=== PATIENT | male | born 1975 | race Hispanic/Latino ===

== ENCOUNTER 2018-06-03 11:20 | Emergency (ER) | payer OTHER ==
--- NOTE | 2018-06-03 12:12 | RAD REPORT ---
EXAM DESCRIPTION: CT - Head Brain Wo Cont - 06/03/2018 12:04 pm CLINICAL HISTORY: MENTAL STATUS CHANGE Drowsiness COMPARISON: No comparisons TECHNIQUE: All CT scans are performed using dose optimization technique as appropriate and may inclu de automated exposure control or mA/KV adjustment according to patient size. FINDINGS: No intracranial hemorrhage, hydrocephalus or extra-axial fluid collection.Large area of gl iosis is seen in the left cerebral hemisphere likely related to prior infarction or trauma.Prominent brain atrophy pattern with chronic microvascular ischemic changes seen. No midline shift. The paranasal sinuses and mastoids are clear. The calvarium is intact. IMPRESSION: No acute intracranial abnormality. Prominent atrophy pattern noted, greater than typically seen in this age group.
[2018-06-03 12:54] LABS: Protime INR 1.13
[2018-06-03 12:55] LABS: Absolute Lymphocytes (CBC) 1.2 K/uL (0.7-4.9); Absolute Monocytes 0.5 K/uL (0.1-1.3); Absolute Neutrophil 6.1 K/uL (1.8-8.0); Basophils % 0.2 % (0-1.3); Eosinophils % 1.2 % (0-4.4); Hematocrit 36.2 % (39.6-49.0); Lymphocytes % 14.8 % (15.3-44.8); MCH 29.7 pg (27.0-35.0); MCV 84.6 fL (80-100); MPV 8.3 fL (7.6-11.3); Monocytes % 6.4 % (3.3-12.3); RBC Red Blood Cell Count 4.28 M/uL (4.33-5.43)
[2018-06-03 13:05] LABS: ALT/SGPT 24 U/L (12-78); AST/SGOT 15 U/L (15-37); Albumin 3.3 g/dL (3.4-5.0); Alkaline Phosphatase 105 U/L (45-117); BUN Blood Urea Nitrogen 17 mg/dL (7-18); Bicarbonate 26 mmol/L (21-32); Bilirubin Direct < 0.1 mg/dL (0-0.2); Bilirubin Total 0.2 mg/dL (0.2-1.0); Glucose Level 158 mg/dL (74-106); Potassium 3.8 mmol/L (3.5-5.1); Protein, Total 6.9 g/dL (6.4-8.2); Sodium Level 139 mmol/L (136-145)
[2018-06-03 13:41] LABS: Urine Bacteria NONE SEEN /HPF (NONE SEEN); Urine Culture Reflex Order NOT NEEDED; Urine RBC <5 /HPF (NONE SEEN)
[2018-06-03 13:42] LABS: Urine Blood 1+ (NEG); Urine Glucose NEGATIVE (NEG); Urine Protein TRACE (NEG); Urine Specific Gravity 1.025 (1.005-1.030); Urine pH 5.5 (5.0-7.0)
[2018-06-03 13:51] LABS: Barbiturates NEGATIVE (NEGATIVE); Benzodiazepines NEGATIVE (NEGATIVE); Cocaine NEGATIVE (NEGATIVE); METHAMPHETAM NEGATIVE (NEGATIVE); Methadone NEGATIVE (NEGATIVE); Opiates NEGATIVE (NEGATIVE); Phencyclidine NEGATIVE (NEGATIVE); THC Cannibis NEGATIVE (NEGATIVE)
--- NOTE | 2018-06-03 14:21 | EDPHYS ---
Physician Documentation [facility] Name: Jameson Forde Age: 42 yrs Sex: Male : 1975 Arrival Date: 06/03/2018 Time: 11:28 Bed 27 Private MD: ED Physician Luis E Cantu HPI: 06/03 14:00 This 42 yrs old Male presents to ER via EMS with complaints of General pm1 Weakness. 14:00 The patient presents to the emergency department with weakness of the entire body, pm1 generalized weakness. Onset: The symptoms/episode began/occurred this morning. Context: occurred at home, occurred while the patient was doing normal activity. Associated signs and symptoms: Pertinent negatives: fever, headache, syncope, near-syncope. Severity of symptoms: in the emergency department the symptoms. Patient's baseline: Neuro: orientated to person, place, Motor: at his current generalized weakness baseline, Ambulation: walks without assistance, The patient has a previous history of mitochondrial disease. Current symptoms: Currently, the patient is not experiencing any symptoms, the patient feels back to baseline, according to sister who lives with. The patient has not recently seen a physician. 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 Patient was not doing his normal routine according to his sister and is currently acting within his normal limits. 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 - Social history:: Smoking status: Patient/guardian denies using tobacco. - Ebola Screening: : Patient negative for fever greater than or equal to 101.5 degrees Fahrenheit, and additional compatible Ebola Virus Disease symptoms Patient denies exposure to infectious person Patient denies travel to an Ebola-affected area in the 21 days before illness onset No symptoms or risks identified at this time. ROS: 14:00 Constitutional: Negative for fever, chills, and weight loss, Eyes: Negative for injury, pm1 pain, redness, and discharge, ENT: Negative for injury, pain, and discharge, Neck: Negative for injury, pain, and swelling, Cardiovascular: Negative for chest pain, palpitations, and edema, Respiratory: Negative for shortness of breath, cough, wheezing, and pleuritic chest pain, Abdomen/GI: Negative for abdominal pain, nausea, vomiting, diarrhea, and constipation, Back: Negative for injury and pain, : Negative for injury, bleeding, discharge, and swelling, MS/Extremity: Negative for injury and deformity, Skin: Negative for injury, rash, and discoloration. 14:00 Neuro: Positive for generalized weakness, Negative for altered mental status, headache, loss of consciousness, seizure activity, syncope, near syncope. Exam: 14:00 Constitutional: This is a well developed, well nourished patient who is awake, alert, pm1 and in no acute distress. Head/Face: Normocephalic, atraumatic. Eyes: Pupils equal round and reactive to light, extra-ocular motions intact. Lids and lashes normal. Conjunctiva and sclera are non-icteric and not injected. Cornea within normal limits. Periorbital areas with no swelling, redness, or edema. ENT: Nares patent. No nasal discharge, no septal abnormalities noted. Tympanic membranes are normal and external auditory canals are clear. Oropharynx with no redness, swelling, or masses, exudates, or evidence of obstruction, uvula midline. Mucous membranes moist. Neck: Trachea midline, no thyromegaly or masses palpated, and no cervical lymphadenopathy. Supple, full range of motion without nuchal rigidity, or vertebral point tenderness. No Meningismus. Chest/axilla: Normal chest wall appearance and motion. Nontender with no deformity. No lesions are appreciated. Cardiovascular: Regular rate and rhythm with a normal S1 and S2. No gallops, murmurs, or rubs. Normal PMI, no JVD. No pulse deficits. Respiratory: Lungs have equal breath sounds bilaterally, clear to auscultation and percussion. No rales, rhonchi or wheezes noted. No increased work of breathing, no retractions or nasal flaring. Abdomen/GI: Soft, non-tender, with normal bowel sounds. No distension or tympany. No guarding or rebound. No evidence of tenderness throughout. Back: No spinal tenderness. No costovertebral tenderness. Full range of motion. Skin: Warm, dry with normal turgor. Normal color with no rashes, no lesions, and no evidence of cellulitis. MS/ Extremity: Pulses equal, no cyanosis. Neurovascular intact. Full, normal range of motion. 14:00 Neuro: Orientation: unable to test, mitochondrial disease, Mentation: baseline according to sister at bedside, Motor: moves all fours, strength is 5/5 in all extremities, Sensation: is normal, no obvious gross deficits. Vital Signs: 11:39 BP 108 / 72; Pulse 83; Resp 24; Temp 99(O); Pulse Ox 100% on 2 lpm NC; Weight 65.77 kg dm5 (R); Height 5 ft. 6 in. (167.64 cm) (R); Pain 0/10; 11:43 Pulse Ox 94% on R/A; dm5 13:12 BP 105 / 75; Pulse 77; Resp 16; Pulse Ox 99% on R/A; aj 13:41 BP 109 / 73; Pulse 73; Resp 16; Pulse Ox 99% on R/A; aj 14:35 BP 108 / 73; Pulse 76; Resp 18; Pulse Ox 99% on R/A; aj 11:39 Body Mass Index 23.40 (65.77 kg, 167.64 cm) dm5 MDM: 11:28 Patient medically screened. yahir 14:20 Data reviewed: vital signs. Data interpreted: Pulse oximetry: on room air is 99 %. pm1 Interpretation: normal. Counseling: I had a detailed discussion with the patient and/or guardian regarding: the historical points, exam findings, and any diagnostic results supporting the discharge/admit diagnosis, lab results, radiology results, the need for outpatient follow up, to return to the emergency department if symptoms worsen or persist or if there are any questions or concerns that arise at home. 06/03 11:39 Order name: Acetaminophen; Complete Time: 14: pm1 06/03 11:39 Order name: Basic Metabolic Panel; Complete Time: 14: pm06/03 11:39 Order name: CBC with Diff; Complete Time: 14: pm1 06/03 11:39 Order name: ETOH Level; Complete Time: 14: pm1 06/03 11:39 Order name: Hepatic Function; Complete Time: 14: pm06/03 11:39 Order name: PT-INR; Complete Time: 14:09 pm1 06/03 11:35 Order name: CT Head Brain wo Cont; Complete Time: 12:22 pm1 06/03 11:39 Order name: Ptt, Activated; Complete Time: 14:09 pm06/03 11:39 Order name: Salicylate; Complete Time: 14:09 pm1 06/03 11:39 Order name: Urine Drug Screen; Complete Time: 14:09 pm06/03 11:39 Order name: EKG; Complete Time: 11:40 pm1 06/03 11:39 Order name: EKG - Nurse/Tech; Complete Time: 13:26 pm1 06/03 11:39 Order name: Urine Microscopic Only; Complete Time: 14:09 pm06/03 13:21 Order name: Urine Dipstick--Ancillary (enter results); Complete Time: 14:09 eb 06/03 11:39 Order name: IV Saline Lock; Complete Time: 13:19 pm1 06/03 11:39 Order name: Labs collected and sent; Complete Time: 13:19 pm1 06/03 11:39 Order name: Urine Dipstick-Ancillary (obtain specimen); Complete Time: 13:19 pm1 Administered Medications: No medications were administered Disposition: 06/04 07:18 Co-signature as Attending Physician, Luis E Cantu MD I agree with the assessment and yahir plan of care. Disposition: 06/03/18 14:21 Discharged to Home. Impression: Weakness. - Condition is Stable. - Discharge Instructions: Weakness. - Medication Reconciliation Form, Thank You Letter, Antibiotic Education, Prescription Opioid Use form. - Follow up: Emergency Department; When: As needed; Reason: Worsening of condition. Follow up: Private Physician; When: 2 - 3 days; Reason: Recheck today's complaints, Continuance of care, Re-evaluation by your physician. - Problem is new. - Symptoms have improved. Signatures: Dispatcher [employer] Swati Hidalgo, Elida Reyna RN, RN RN aj Anderson, Corey, MD MD cha Marinas, Patrick, DISPENSARY CLERK DISPENSARY CLERK pm1 Corrections: (The following items were deleted from the chart) 06/03 14:37 14:21 06/03/2018 14:21 Discharged to Home. Impression: Weakness. Condition is Stable. aj Forms are Medication Reconciliation Form, Thank You Letter, Antibiotic Education, Prescription Opioid Use. Follow up: Emergency Department; When: As needed; Reason: Worsening of condition. Follow up: Private Physician; When: 2 - 3 days; Reason: Recheck today's complaints, Continuance of care, Re-evaluation by your physician. Problem is new. Symptoms have improved. pm1
--- NOTE | 2018-06-03 14:21 | ER ---
Nurse's Notes [facility] Name: Jameson Forde Age: 42 yrs Sex: Male : 1975 Arrival Date: 06/03/2018 Time: 11:28 Bed 27 Private MD: Diagnosis: Weakness Presentation: 06/03 11:32 Presenting complaint: EMS states: Home health says he just wasn't himself earlier but dm5 he is more back to baseline at this time. Always weak and has a hard time walking normally. Family wants blood work done and states he needs fluids. Pt finishing liter bolus started in EMS. Transition of care: patient was not received from another setting of care. Onset of symptoms was June 03, 2018. Risk Assessment: Do you want to hurt yourself or someone else? Patient reports no desire to harm self or others. Initial Sepsis Screen: Does the patient meet any 2 criteria? No. Patient's initial sepsis screen is negative. Does the patient have a suspected source of infection? No. Patient's initial sepsis screen is negative. Care prior to arrival: IV initiated. 18 GA, in the left forearm. 11:32 Method Of Arrival: EMS: [facility] 5 11:32 Acuity: SHEN 3 dm5 Triage Assessment: 11:39 General: Appears in no apparent distress. Behavior is calm, cooperative, baseline per dm5 family. Pain: Denies pain. Unable to use pain scale. only answers yes questions but does not appear to be in pain at this time. Neuro: Level of Consciousness is awake, obeys commands, confused. Respiratory: Airway is patent Respiratory effort is even, unlabored, relaxed, Respiratory pattern is regular, symmetrical. GI: family reports diarrhea yesterday. Pt vomited throw up last night 1 time. Derm: Skin is pink, warm \T\ dry. 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 - Social history:: Smoking status: Patient/guardian denies using tobacco. - Ebola Screening: : Patient negative for fever greater than or equal to 101.5 degrees Fahrenheit, and additional compatible Ebola Virus Disease symptoms Patient denies exposure to infectious person Patient denies travel to an Ebola-affected area in the 21 days before illness onset No symptoms or risks identified at this time. Screenin:34 Abuse screen: Denies threats or abuse. Denies injuries from another. Nutritional aj screening: No deficits noted. Tuberculosis screening: No symptoms or risk factors identified. Fall Risk None identified. Assessment: 12:33 General: Appears in no apparent distress. comfortable, Behavior is calm, cooperative, aj appropriate for age. Pain: Denies pain. Neuro: Level of Consciousness is awake, obeys commands, Oriented to WNL for patient. Neuro: Embossing Calender Operator are equal bilaterally Moves all extremities. Speech is normal, Facial symmetry appears normal. Respiratory: Airway is patent Respiratory effort is even, unlabored, Respiratory pattern is regular, symmetrical. GI: No signs and/or symptoms were reported involving the gastrointestinal system. Derm: Skin is intact, is healthy with good turgor, Skin is pink, warm \T\ dry. normal. 14:35 Reassessment: Patient appears in no apparent distress at this time. No changes from aj previously documented assessment. Patient and/or family updated on plan of care and expected duration. Pain level reassessed. Patient is alert, oriented x 3, equal unlabored respirations, skin warm/dry/pink. Caregiver is at bedside Patient states feeling better. Patient states symptoms have improved. Vital Signs: 11:39 BP 108 / 72; Pulse 83; Resp 24; Temp 99(O); Pulse Ox 100% on 2 lpm NC; Weight 65.77 kg dm5 (R); Height 5 ft. 6 in. (167.64 cm) (R); Pain 0/10; 11:43 Pulse Ox 94% on R/A; dm5 13:12 BP 105 / 75; Pulse 77; Resp 16; Pulse Ox 99% on R/A; aj 13:41 BP 109 / 73; Pulse 73; Resp 16; Pulse Ox 99% on R/A; aj 14:35 BP 108 / 73; Pulse 76; Resp 18; Pulse Ox 99% on R/A; aj 11:39 Body Mass Index 23.40 (65.77 kg, 167.64 cm) dm5 ED Course: 11:28 Patient arrived in ED. ss 11:28 Corky Steel NP is PHCP. pm1 11:28 Luis E Cantu MD is Attending Physician. pm1 11:34 Triage completed. dm5 11:43 Arm band placed on Patient placed in an exam room, on a stretcher, on manager cardiac, dm5 on pulse oximetry. 12:[address] via stretcher. sj 12:05 CT Head Brain wo Cont In Process Unspecified. EDMS 12:33 Elida Aldrich, RN is Primary Nurse. aj 12:34 Patient has correct armband on for positive identification. Placed in gown. Bed in low aj position. Call light in reach. Side rails up X 1. Adult w/ patient. 12:52 EKG done, by pathology technician. reviewed by Corky Steel NP. 3 14:35 No provider procedures requiring assistance completed. IV discontinued, intact, aj bleeding controlled, No redness/swelling at site. Pressure dressing applied, EMS 18 G to left AC. Administered Medications: No medications were administered Outcome: 14:21 Discharge ordered by . pm1 14:35 Discharged to home ambulatory, with family. aj 14:35 Condition: good 14:35 Discharge instructions given to patient, family, Instructed on discharge instructions, follow up and referral plans. Demonstrated understanding of instructions, follow-up care. 14:37 Patient left the ED. aj Signatures: Dispatcher [employer] CHERNM Swati Long RN RN dmElida Aquino RN RN aj Jones, Susan sj Smirch, Shelby, RN RN Corky Steel NP NEWS WIRE PHOTO OPERATOR pm1 Juju Tony 3
--- NOTE | 2018-06-04 04:18 | EKG ---
Test Date: 2018-06-03 Test Time: 12:50:32 Bulk Folder: SADI MEASUREMENT RESULTS: Intervals: Rate: 77 NV: 120 QRSD: 84 QT: 402 QTc: 454 [place]: P: 49 NV: 120 QRS: 47 T: 152 INTERPRETIVE STATEMENTS: Normal sinus rhythm nst Abnormal ECG Compared to ECG 10/16/2007 20:00:45 Sinus tachycardia no longer present T-wave abnormality still present Electronically Signed On 06-04-18 04:17:27 CDT by Gregory Martinez
== END 2018-06-03 14:37 | disposition home or self-care (01) ==
LOC: ER 11:20
DX: R53.1 Weakness (principal); E88.40 Mitochondrial metabolism disorder, unspecified
CPT/HCPCS: 36415; 70450; 80048; 80076; 80307; 80320; 80329; 81003; 81015; 85025; 85610; 85730; 93005; 99284

== ENCOUNTER 2022-03-21 13:40 | Inpatient (IN) | payer OTHER ==
--- OUTSIDE RECORDS SUMMARY | 2022-03-21 13:43 | XMS REPORT | Continuity of Care Document ---
:1975 Author Organization [facility] t Address [address] [place] [address] [address] [place] [address] Care Team Providers Name Role Phone Unavailable Unavailable Unavailable Payers Payer Name Policy Type Policy Number Effective Date Expiration Date S rusty MEDICARE PART A \T\ [id number] 2008 B 00:00:00 [facility] [id number] 2019 MEDICAID 00:00:00 Problems This patient has no known problems. Allergies, Adverse Reactions, Alerts Allergy Allergy Status Severity Reaction(s) Onset Inactive Treating Comm ents Source Name Type Date Date Clinician IODINATE Drug Active Rash 2009-0 [facility] D Class 3-11 ity of CONTRAST 00:00: [address] PHENYTOI DRUG Active Hives 2006-0 Univers N INGREDI 5-13 ity of 00:00: [address] Medications This patient has no known medications. Procedures This patient has no known procedures. Encounters Start End Encounter Admission Attending Care Care Encounter Source Date/Time Date/Time Type Type Clinicians Facility Department ID 2021-07-31 Emergency [facility] [id number] [facility] 15:56:24 ity of [facility] Results This patient has no known results.
--- NOTE | 2022-03-21 14:19 | RAD REPORT ---
EXAM DESCRIPTION: CT - Ct Stroke Brain Wo Cont - 03/21/2022 2:06 pm CLINICAL HISTORY: MELAS, AMS COMPARISON: Head Brain Wo Cont dated 06/03/2018 TECHNIQUE: All CT scans are performed using dose optimization technique as appropriate and may inclu de automated exposure control or mA/KV adjustment according to patient size. FINDINGS: No intracranial hemorrhage, hydrocephalus or extra-axial fluid collection.No areas of brai n edema or evidence of midline shift. Large remote left MCA territory infarct. Age advanced cerebral atrophy. Chronic small vessel ischemic changes. Bilateral basal ganglia mineralization. Trace maxillary sinus thickening. The calvarium is intact. IMPRESSION: No acute intracranial abnormality. Large remote left MCA territory infarct.
[2022-03-21 14:26] LABS: Absolute Lymphocytes (CBC) 1.6 K/uL (0.7-4.9); Hematocrit 37.4 % (39.6-49.0); Lymphocytes % 16.7 % (15.3-44.8); MPV 7.3 fL (7.6-11.3); RBC Red Blood Cell Count 4.39 M/uL (4.33-5.43)
[2022-03-21 14:32] LABS: Protime INR 1.12
--- NOTE | 2022-03-21 14:40 | RAD REPORT ---
EXAM DESCRIPTION: RAD - Chest Single View - 03/21/2022 2:20 pm CLINICAL HISTORY: AMS COMPARISON: CHEST SINGLE VIEW dated 04/26/2010 FINDINGS: Lines: None. Lungs: Decreased lung volumes with mild basilar opacities. Pleural: No significant pleural effusions or pneumothorax. Cardiac: Similar size and configuration. Bones: No acute fractures. Other: IMPRESSION: Decreased lung volumes with mild basilar opacities favored represent atelectasis.
[2022-03-21 14:45] LABS: ALT/SGPT 19 U/L (12-78); AST/SGOT 12 U/L (15-37); Albumin 3.6 g/dL (3.4-5.0); Alkaline Phosphatase 104 U/L (45-117); BUN Blood Urea Nitrogen 16 mg/dL (7-18); Bicarbonate 29 mmol/L (21-32); Bilirubin Total 0.2 mg/dL (0.2-1.0); Creatine Phosphokinase 137 U/L (39-308); Glomerular Filtration Rate 115 ml/min (=/>90); Glucose Level 116 mg/dL (74-106); Potassium 4.2 mmol/L (3.5-5.1); Protein, Total 7.7 g/dL (6.4-8.2); Sodium Level 137 mmol/L (136-145)
[2022-03-21] MEDS ORDERED: NA CHLORIDE 0.9% 1,000 ML ONE ×2 (14:53→15:24)
[2022-03-21 14:58] LABS: Bilirubin Direct < 0.1 mg/dL (0-0.2)
--- NOTE | 2022-03-21 15:37 | EDPHYS ---
Physician Documentation [facility] Name: Jameson Forde Age: 46 yrs Sex: Male : 1975 Arrival Date: 03/21/2022 Time: 13:42 Bed 3 Private MD: ED Physician Geraldo Alexander HPI: 03/21 18:43 This 46 yrs old Male presents to ER via EMS with complaints of Altered Mental rn Status, Slurred Speech. 18:43 The patient presents with confusion. Onset: The symptoms/episode began/occurred at an rn unknown time. Possible causes: unknown. Current symptoms: In the emergency department the patient's symptoms are unchanged from the initial presentation. The patient has experienced a previous episode. The patient has not recently seen a physician. EMS reports last known normal last night, family saw him this AM and was not at baseline, seemed confused, more slurred speech than normal, agitated. NO seizures. Has MELAS. Takes carbamazepine for seizures. . 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 - Social history:: Smoking status: unknown. - Family history:: not pertinent. - Hospitalizations: : No recent hospitalization is reported. ROS: 18:43 Unable to obtain ROS due to altered mental status. rn Exam: 18:43 Constitutional: This is a well developed, well nourished patient who is awake, alert, rn slight agitation Head/Face: Normocephalic, atraumatic. Eyes: Periorbital areas with no swelling, redness, or edema. ENT: dry MM Cardiovascular: Regular rate and rhythm. No pulse deficits. Respiratory: No increased work of breathing, no retractions or nasal flaring. Abdomen/GI: Soft, non-tender Skin: Warm, dry MS/ Extremity: Pulses equal, no cyanosis. Neuro: Awake alert, moderate slurred speech, moves all 4 extremities with equal strength and to command. Oriented to person, not place or time, repetetive speech. Vital Signs: 13:42 BP 124 / 83; Pulse 74; Resp 16; Temp 98.4(A); Pulse Ox 100% ; aa5 15:00 BP 123 / 78; Pulse 74; Resp 18 S; Temp 98.3(A); Pulse Ox 100% on R/A; aa5 16:30 BP 119 / 85; Pulse 74; Resp 16 S; Pulse Ox 99% on R/A; aa5 19:16 BP 119 / 96; Pulse 73; Resp 18 S; Pulse Ox 100% on R/A; lg3 NIH Stroke Scale Scores: 13:42 NIHSS Score: 9 aa5 MDM: 13:42 Patient medically screened. rn 03/21 13:44 Order name: Basic Metabolic Panel; Complete Time: 15:32 rn 03/21 13:44 Order name: CBC with Diff; Complete Time: 14:30 rn 03/21 13:44 Order name: CPK; Complete Time: 15:32 rn 03/21 13:44 Order name: Hepatic Function; Complete Time: 15:32 rn 03/21 13:44 Order name: Protime (+inr); Complete Time: 14:49 03/21 13:44 Order name: Ptt, Activated; Complete Time: 14:49 rn 03/21 13:44 Order name: Lactate; Complete Time: 15:32 rn 03/21 14:29 Order name: Glucose, Ancillary Testing; Complete Time: 14:30 [facility] 03/21 14:55 Order name: SARS-COV-2 RT PCR (Document "Date of Onset" if Symptomatic) 03/21 15:35 Order name: Urine Drug Screen 03/21 16:51 Order name: Prolactin EDKY 03/21 16:51 Order name: Creatine Phosphokinase EDKY 03/21 16:51 Order name: Homocysteine EDKY 03/21 16:51 Order name: Thyroid Stimulating Hormone EDKY 03/21 13:44 Order name: CT Stroke Brain w/o Contrast; Complete Time: 14:30 rn 03/21 13:44 Order name: Stroke CXR 1 View; Complete Time: 14:49 rn 03/21 16:51 Order name: CBC with Automated Diff EDMS 03/21 16:51 Order name: CBC with Automated Diff EDMS 03/21 16:51 Order name: Comprehensive Metabolic Panel EDMS 03/21 16:51 Order name: Comprehensive Metabolic Panel EDMS 03/21 16:51 Order name: Comprehensive Metabolic Panel EDKY 03/21 16:51 Order name: Comprehensive Metabolic Panel EDMS 03/21 16:51 Order name: Lipid Profile EDKY 03/21 16:51 Order name: Lipid Profile EDKY 03/21 16:51 Order name: Brain Wo Cont EDKY 03/21 16:53 Order name: Carbamazepine (Tegretol) Level EDKY 03/21 19:02 Order name: Urine Dipstick-Ancillary EDKY 03/21 19:43 Order name: Lactate Sepsis 2 HR Follow-up EDKY 03/21 13:44 Order name: EKG; Complete Time: 13:44 rn 03/21 13:44 Order name: Accucheck; Complete Time: 14:30 rn 03/21 13:44 Order name: Cardiac monitoring; Complete Time: 14:30 rn 03/21 13:44 Order name: EKG - Nurse/Tech; Complete Time: 14:30 rn 03/21 13:44 Order name: IV Saline Lock; Complete Time: 14:30 rn 03/21 13:44 Order name: Labs collected and sent; Complete Time: 14:30 rn 03/21 13:44 Order name: NPO; Complete Time: 13:47 rn 03/21 13:44 Order name: O2 Per Protocol; Complete Time: 13:46 rn 03/21 13:44 Order name: O2 Sat Monitoring; Complete Time: 13:46 rn 03/21 13:44 Order name: Stroke Swallow Screen; Complete Time: 15:01 rn 03/21 16:51 Order name: CONS Physician Consult EDKY 03/21 16:51 Order name: Clear Liquid; Complete Time: 19:16 EDMS Administered Medications: 14:45 Drug: NS 0.9% 1000 ml Route: IV; Rate: 1000 ml; Site: right antecubital; aa5 15:31 Drug: NS 0.9% 1000 ml Route: IV; Rate: 1000 ml; Site: right antecubital; aa5 Point of Care Testing: Blood Glucose: 14:20 Blood Glucose: 123 mg/dL; aa5 Ranges: Critical Glucose Levels:Adult <50 mg/dl or >400 mg/dl <40 mg/dl or >180 mg/dl Disposition Summary: 03/21/22 15:36 Hospitalization Ordered Hospitalization Status: Inpatient Admission rn Provider: Marielos De Los Santos rn Location: Telemetry/MedSurg (Inpatient) rn Condition: Stable rn Problem: new rn Symptoms: are unchanged rn Bed/Room Type: Standard rn Room Assignment: 223(03/21/22 18:19) bd Diagnosis - Altered mental status, unspecified magdi GANNON rn Forms: - Medication Reconciliation Form rn - SBAR form rn NIH Stroke Scale - NIH Stroke Score Date: 03/21/2022 Time: 13:42 Total Score = 9 1a. Level of Consciousness (LOC) - 0(Alert) 1b. Level of Consciousness (LOC) (Month \\T\\ Age) - 2(Neither) 1c. LOC Commands (Open \\T\\ Closes Eyes/Tank Car Cleaner) - 2(Neither) 2. Best Gaze (Lateral Gaze Paresis) - 0(Normal) 3. Visual Field Loss - 0(No visual loss) 4. Facial Palsy - 0(Normal) 5a. Left Arm: Motor (10-second hold) - 0(No drift) 5b. Right Arm: Motor (10-second hold) - 1(Drift) 6a. Left Leg: Motor (5-second hold - always test supine) - 0(No drift) 6b. Right Leg: Motor (5-second hold - always test supine) - 0(No drift) 7. Limb Ataxia (finger/nose \\T\\ heel/henning - test with eyes open) - 0(Absent) 8. Sensory Loss (pinprick arms/legs/face) - 0(Normal) 9. Best Language: Aphasia (description/naming/reading) - 2(Severe aphasia) 10. Dysarthria (speech clarity - read or repeat words) - 2(Severe) 11. Extinction and Inattention (visual/tactile/auditory/spatial/personal) - 0(No abnormality) Initials: aa5 Signatures: Dispatcher [employer] Jeanne Metzger Roman, MD MD rn Calderon, Audri, RN RN aa5 Corrections: (The following items were deleted from the chart) 13:54 13:42 PMHx: DYLON; blas aa5 18:19 15:36 rn eva
--- NOTE | 2022-03-21 15:37 | ER ---
Nurse's Notes [facility] Name: Jameson Forde Age: 46 yrs Sex: Male : 1975 Arrival Date: 03/21/2022 Time: 13:42 Bed 3 Private MD: Diagnosis: Altered mental status, unspecified;MELAS Presentation: 03/21 13:42 Coronavirus screen: At this time, the client does not indicate any symptoms associated aa5 with coronavirus-19. Ebola Screen: Patient denies travel to an Ebola-affected area in the 21 days before illness onset. Initial Sepsis Screen: Does the patient meet any 2 criteria? No. Patient's initial sepsis screen is negative. Does the patient have a suspected source of infection? No. Patient's initial sepsis screen is negative. Risk Assessment: Do you want to hurt yourself or someone else? Unable to obtain. Onset of symptoms was March 21, 2022. 13:42 Acuity: SHEN 2 aa5 13:42 Method Of Arrival: EMS: [facility] aa5 13:42 Chief complaint: EMS states: family reported speech difficulty, pt is normally able to aa5 speak short sentences with some aphasia. Last known normal was last night. 13:42 An acute neurological deficit is present. Pre-hospital glucose is not applicable to aa5 this patient. Triage Assessment: 13:42 The onset of the patients symptoms was more than six hours ago. 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 - Social history:: Smoking status: unknown. - Family history:: not pertinent. - Hospitalizations: : No recent hospitalization is reported. Screenin:36 Abuse screen: No signs of abuse noted. Nutritional screening: No deficits noted. aa5 Tuberculosis screening: No symptoms or risk factors identified. Fall Risk Secondary diagnosis (15 points) CVA, IV access (20 points). Mental Status- Overestimates/Forgets Limitations (15 pts.). Total Waggoner Fall Scale indicates High Risk Score (45 or more points). Fall prevention measures have been instituted. Side Rails Up X 2 Placed Close to Nursing Station Family Present and informed to notify staff if the need to leave the bedside. Assessment: 13:42 General: Appears comfortable, Behavior is calm, cooperative. Pain: Unable to use pain aa5 scale. FLACC scale score is 0 out of 10. Neuro: Level of Consciousness is awake, confused, Pt only able to follow some commands . Oriented to person, Diesel Mechanic Farm are unknown, pt unable to follow command to transition teacher. . Weakness in right arm(s) Speech is slurred, with expressive aphasia noted, Facial symmetry appears normal, PERRL. Cardiovascular: Heart tones S1 S2 present Rhythm is regular. Respiratory: Airway is patent Respiratory effort is even, unlabored, Respiratory pattern is regular, symmetrical, Breath sounds are clear bilaterally. GI: Abdomen is round non-distended, Bowel sounds present X 4 quads. Abd is soft X 4 quads. : No signs and/or symptoms were reported regarding the genitourinary system. EENT: hearing aid noted to left ear . Derm: Skin is dry, Skin is normal, Skin temperature is warm. Musculoskeletal: Range of motion: intact in all extremities. 13:42 VAN Scoring: Arm Drift: Minor drift Visual Disturbance: No visual disturbance noted. aa5 Aphasia: Patient exhibits both expressive and receptive aphasia. Provider notified of +VAN scoring. Neglect: No neglect noted. 13:42 T-PA (Activase) Screening: Contraindications: Patient reports onset of signs and aa5 symptoms of stroke greater than 6 hours ago: Yes. 13:42 Patient has been NPO before screening. The patient is alert, and able to follow aa5 commands. The patient exhibits slurred or garbled speech. Provider notified of the indication for Speech Therapy consult. The patient failed the bedside swallow screening. The patient will be kept NPO until cleared by Speech Therapy or Physician. Provider notified of bedside swallow screening results: Geraldo Alexander MD. 13:42 The patient is exhibiting difficulty speaking. The patient is exhibiting difficulty aa5 understanding words. The patient is able to swallow own secretions with no drooling or need for suction. not completed not completed. 14:00 Reassessment: Pt's niece (swage toolsetter) at bedside. Pt's niece reports slurred speech and aa5 states "he was dropping things this morning and he normally doesn't do that, he is right handed and dropped his coffee cup this morning" . 14:10 Reassessment: Back from CT, x-ray at bedside . aa5 14:45 Reassessment: Pt not responding to name, pt with eyes open staring into space, right aa5 side of face twitching and mild facial droop noted, MD was notified and episode witnessed by physician, currently speaking to pt's niece (caregiver). Episode lasted approximately 30 to 45 seconds. Pt now awake and responding to name, slurred speech, receptive/expressive aphasia noted, right arm weakness and drift, no facial droop noted at this time. . 15:00 Reassessment: Pt sitting up in bed. . Neuro: Level of Consciousness is awake, Oriented aa5 to person, Diesel Mechanic Farm are unknown, pt not following commands to transition teacher . Weakness in right arm(s) Speech is slurred, with expressive aphasia noted, Facial symmetry appears normal, PERRL. Cardiovascular: Rhythm is sinus rhythm. Respiratory: Airway is patent Respiratory effort is even, unlabored, Respiratory pattern is regular, symmetrical. Derm: Skin is dry, Skin is normal, Skin temperature is warm. 15:30 Reassessment: Pt resting in bed with eyes closed, respirations even and unlabored. . aa5 16:30 Reassessment: Pt resting in bed with eyes closed, easy to awaken to verbal stimuli. aa5 Speech remains incomprehensible and slurred. Awaiting room assignment. . 17:30 Reassessment: Pt resting in bed with eyes closed, easy to awaken to verbal stimuli. aa5 Cleaned of urinary incontinence. . 19:17 General: Appears in no apparent distress. comfortable, Behavior is calm, cooperative. lg3 Pain: Unable to use pain scale. FLACC scale score is 0 out of 10. Neuro: Level of Consciousness is awake, confused, Oriented to person, Weakness Speech is slurred, with expressive aphasia noted, Facial symmetry appears normal. Cardiovascular: No deficits noted. Heart tones S1 S2 present Rhythm is sinus rhythm. Respiratory: No deficits noted. Airway is patent Respiratory effort is even, unlabored, Respiratory pattern is regular, symmetrical. GI: No deficits noted. Abdomen is round non-distended, Bowel sounds present X 4 quads. Abd is soft X 4 quads. : No signs and/or symptoms were reported regarding the genitourinary system. EENT: hearing aid noted to left ear. Derm: No deficits noted. Skin is dry, Skin is normal, Skin temperature is warm. Musculoskeletal: Range of motion: intact in all extremities. 20:15 Reassessment: Pt taken to MRI via stretcher, will go to 2nd floor after MRI is complete.vc1 Vital Signs: 13:42 BP 124 / 83; Pulse 74; Resp 16; Temp 98.4(A); Pulse Ox 100% ; aa5 15:00 BP 123 / 78; Pulse 74; Resp 18 S; Temp 98.3(A); Pulse Ox 100% on R/A; aa5 16:30 BP 119 / 85; Pulse 74; Resp 16 S; Pulse Ox 99% on R/A; aa5 19:16 BP 119 / 96; Pulse 73; Resp 18 S; Pulse Ox 100% on R/A; lg3 NIH Stroke Scale Scores: 13:42 NIHSS Score: 9 aa5 ED Course: 13:42 Patient arrived in ED. rn 13:42 Geraldo Alexander MD is Attending Physician. rn 13:42 Arm band placed on. aa5 13:42 Patient has correct armband on for positive identification. Placed in gown. Bed in low aa5 position. Call light in reach. Side rails up X2. Client placed on continuous cardiac and pulse oximetry monitoring. NIBP monitoring applied. 13:46 Jany Bettencourt, MICHELLE is Primary Nurse. aa5 13:48 Triage completed. aa5 14:07 CT Stroke Brain w/o Contrast In Process Unspecified. EDMS 14:15 Initial lab(s) drawn, by me, sent to lab. Inserted saline lock: 20 gauge in right aa5 antecubital area, using aseptic technique. Blood collected. 14:22 Stroke CXR 1 View In Process Unspecified. EDMS 15:35 Marielos De Los Santos MD is Hospitalizing Provider. rn 15:45 COVID swab sent to lab. aa5 19:00 Report given to MICHELLE Mei. aa5 19:16 Carbamazepine (Tegretol) Level Sent. lg3 19:16 Lipid Profile Sent. lg3 20:13 No provider procedures requiring assistance completed. Patient admitted, IV remains in vc1 place. Administered Medications: 14:45 Drug: NS 0.9% 1000 ml Route: IV; Rate: 1000 ml; Site: right antecubital; aa5 15:31 Drug: NS 0.9% 1000 ml Route: IV; Rate: 1000 ml; Site: right antecubital; aa5 Medication: 19:17 VIS not applicable for this client. lg3 Point of Care Testing: Blood Glucose: 14:20 Blood Glucose: 123 mg/dL; aa5 Ranges: Outcome: 15:36 Decision to Hospitalize by Provider. rn 20:14 Admitted to Med/surg via stretcher, room 223, Report called to Francisco. MICHELLE vc1 20:14 Condition: good 20:14 Instructed on the need for admit. 20:15 Patient left the ED. vc1 NIH Stroke Scale - NIH Stroke Score Date: 03/21/2022 Time: 13:42 Total Score = 9 1a. Level of Consciousness (LOC) - 0(Alert) 1b. Level of Consciousness (LOC) (Month \\T\\ Age) - 2(Neither) 1c. LOC Commands (Open \\T\\ Closes Eyes/Type Casting Machine Operator) - 2(Neither) 2. Best Gaze (Lateral Gaze Paresis) - 0(Normal) 3. Visual Field Loss - 0(No visual loss) 4. Facial Palsy - 0(Normal) 5a. Left Arm: Motor (10-second hold) - 0(No drift) 5b. Right Arm: Motor (10-second hold) - 1(Drift) 6a. Left Leg: Motor (5-second hold - always test supine) - 0(No drift) 6b. Right Leg: Motor (5-second hold - always test supine) - 0(No drift) 7. Limb Ataxia (finger/nose \\T\\ heel/henning - test with eyes open) - 0(Absent) 8. Sensory Loss (pinprick arms/legs/face) - 0(Normal) 9. Best Language: Aphasia (description/naming/reading) - 2(Severe aphasia) 10. Dysarthria (speech clarity - read or repeat words) - 2(Severe) 11. Extinction and Inattention (visual/tactile/auditory/spatial/personal) - 0(No abnormality) Initials: aa5 Signatures: Dispatcher [employer] EDGeraldo Hernández MD MD rn Jany Bettencourt RN RN aa5 Hamida Abarca RN RN lg3 Janae Leyva RN RN vc1 Corrections: (The following items were deleted from the chart) 13:54 13:42 PMHx: MILAS; aa5 aa5 14:36 14:00 Reassessment: Pt's niece (swage toolsetter) at bedside . aa5 aa5
--- NOTE | 2022-03-21 16:37 | P.HP ---
Certification for Inpatient Patient will require the following post-hospital care: None Practitioner: I am a practitioner with admitting privileges, knowledge of patient current condition, hospital course, and medical plan of care. 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 Patient who reside with his niece was noted by the niece to be having difficulty with speaking on waking up this morning. Patient was also dropping things and having disorganized movements which is unlike his baseline. Niece reports that patient did have some weight behavior yesterday but he typically gets tired. She has brought him to the ED today because of worsening confusion. She reports at baseline he is able to do all activities of daily living as well as instrumental activities of daily living without any assist. On presentation in the ED patient had normal blood pressure, he was noted to have both expressive and receptive aphasia. Head CT shows remote old left MCA infarct but otherwise no acute intracranial pathology. His WBC and his BMP were normal. He had mild elevated lactic acid of 2.4. At the time of interview patient is unable to give any history. He has some poor words vocalization but unable to follow commands. Niece present at bedside helping with history. No reported new fever or chills. No reported new contact. No new diarrhea chest pain or dizziness Allergies iodine Allergy (Verified 12/02/12 20:47) Hives phenytoin sodium [From Dilantin] Allergy (Verified 12/02/12 20:47) Hives phenytoin sodium extended [From Dilantin] Allergy (Verified 12/02/12 20:47) Hives - Past Medical/Surgical History -: Multiple CVAs2 episode in his 30s, last episode was 4 years ago -: Seizure disorder, none since the last 5 years -: None - Family History Father -: Other (see notes) Notes: Strong family history of MELAS syndrome with multiple members of the family with CVA - Social History Smoking Status: Never smoker Smoking therapy provided: No Alcohol use: No CD- Drugs: No Caffeine use: No Place of Residence: Home Review of Systems is unable to be obtained Physical Examination - Physical Exam General: Alert, Confused, Delirious, Other (confused and moving ) HEENT: Atraumatic, Normocephalic Neck: Supple, 2+ carotid pulse no bruit, JVD not distended Respiratory: Clear to auscultation bilaterally, Normal air movement Cardiovascular: Normal pulses, Regular rate/rhythm, Normal S1 S2 Gastrointestinal: Normal bowel sounds, Soft and benign, Non-distended Musculoskeletal: No clubbing, No swelling, No contractures Integumentary: No rashes, No breakdown Neurological: Normal tone, Abnormal speech, Abnormal cranial nerve function - Studies Laboratory Data (last 24 hrs) 03/21/22 14:14: PT 12.4, INR 1.12, APTT 33.5 03/21/22 14:14: WBC 9.5, Hgb 12.3 L, Hct 37.4 L, Plt Count 199 03/21/22 14:14: Sodium 137, Potassium 4.2, BUN 16, Creatinine 0.68, Glucose 116 H, Total Bilirubin 0.2, AST 12 L, ALT 19, Alkaline Phosphatase 104 Assessment and Plan - Problems (Diagnosis) (1) MELAS (mitochondrial encephalopathy, lactic acidosis and stroke-like episodes) Current Visit: Yes Status: Acute Discharge Plan: Home Plan to discharge in: 48 Hours - Advance Directives Does patient have a Living Will: No Does patient have a Durable POA for Healthcare: Yes - Code Status/Comfort Care Code Status Assessed: Yes Code Status: Full Code Physician Review: Patient Assessed, Agree with Above Assessment and Plan Physician Review Additional Text: Impression Acute metabolic encephalopathy Rule out new CVA History of MELAS syndrome Elevated lactic aciddue to Syndrome Plan We will admit patient to observation Start gentle IV fluid hydration We will start some sedative with Ativan to control patient agitation and confused status Formal neurology consult Obtain blood culture x2 although likely mild elevated lactic acid may be due to MELAS syndrome As needed Geodon as needed MRI brain in a.m. Obtain urine drug screen Obtain carbamazepine levelneeds report patient is on carbamazepine May need echo and carotid Doppler if evidence of new CVA Will monitor closely Neurochecks every 4 Time Spent Managing Pts Care (In Minutes): 70
[2022-03-21] MEDS ORDERED: ONDANSETRON 4 MG/2 ML VIAL IV PRN (16:42)
[2022-03-21] MEDS ORDERED: LORazepam 2 MG/ML VIAL IV ONE (16:48)
[2022-03-21] MEDS ORDERED: WATER FOR INJ,STERILE 10 ML IM PRN (16:48)
[2022-03-21] MEDS ORDERED: ZIPRASIDONE MESYLA 20 MG/VIAL IM PRN (16:48)
[2022-03-21] MEDS ORDERED: LORazepam 2 MG/ML VIAL IV PRN (16:50)
[2022-03-21 19:02] LABS: Urine Blood Trace-intact (Negative); Urine Glucose Negative (Negative); Urine Protein Negative (Negative); Urine pH 6.5 (5.0-7.0)
[2022-03-21 19:29] LABS: Barbiturates NEGATIVE (NEGATIVE); Benzodiazepines NEGATIVE (NEGATIVE); Cocaine NEGATIVE (NEGATIVE); METHAMPHETAM NEGATIVE (NEGATIVE); Methadone NEGATIVE (NEGATIVE); Opiates NEGATIVE (NEGATIVE); Phencyclidine NEGATIVE (NEGATIVE); THC Cannibis NEGATIVE (NEGATIVE)
--- NOTE | 2022-03-21 20:45 | RAD REPORT ---
EXAM DESCRIPTION: MRI - Brain Wo Cont - 03/21/2022 8:36 pm CLINICAL HISTORY: New onset confusion, rule out new CVA COMPARISON: No comparisons TECHNIQUE: Sagittal T1-weighted images were obtained along with PD/heavily T2-weighted and T2-FLAIR images. Axial DWI and ADC mapping sequences were also obtained along with coronal heavily T2-weighted images were obtained. FINDINGS: Large remote left primarily MCA territory infarct in the left cerebral hemisphere. Remote small right frontotemporal infarct. Moderate chronic small vessel ischemic changes. No new acute infa rct is identified. No mass effect or midline shift. Major intravascular flow voids are present. No hy drocephalus. There is ex vacuo dilatation of the left lateral ventricle as result of the infarcts. Mastoid air cells and paranasal sinuses are clear. IMPRESSION: No acute intracranial abnormality. Specifically, no evidence of acute infarct. Remote bi lateral cerebral infarcts, large on the left and small on the right. Severe age advanced cerebral atr ophy.
[2022-03-21] MEDS: carBAMazepine 200 MG TAB PO SCH (21:00)
[2022-03-21 21:08] LABS: Thyroid Stimulating Hormone 1.22 uIU/mL (0.360-3.740)
[2022-03-21] MEDS: D5 0.9 NS 1,000 ML IV SCH (21:57)
[2022-03-22 02:00] VITALS: BMI 24.2
[2022-03-22 05:57] LABS: Albumin 3.2 g/dL (3.4-5.0); Bilirubin Total 0.3 mg/dL (0.2-1.0); Potassium 3.9 mmol/L (3.5-5.1); Protein, Total 7.1 g/dL (6.4-8.2)
[2022-03-22 06:10] LABS: Absolute Lymphocytes (CBC) 1.4 K/uL (0.7-4.9); Hematocrit 36.2 % (39.6-49.0); Lymphocytes % 11.5 % (15.3-44.8); MCV 84.1 fL (80-100); RBC Red Blood Cell Count 4.31 M/uL (4.33-5.43)
[2022-03-22] MEDS: carBAMazepine 200 MG TAB PO SCH ×2 (09:00→21:00)
[2022-03-22] MEDS: D5 0.9 NS 1,000 ML IV SCH ×2 (09:17→18:27)
--- NOTE | 2022-03-22 14:38 | P.PN ---
Subjective Date of Service: 03/22/22 Chief Complaint: Altered mental status Subjective: New changes (Overnight agitated, given Ativan Geodon Sedated and drowsy this morning On wrist restraints) Physical Examination - Vital Signs Temperature: 97.3 F Blood Pressure: 179/80 Pulse: 74 Respirations: 18 Pulse Ox (%): 100 - Studies Laboratory Data (last 24 hrs) 03/21/22 14:14: PT 12.4, INR 1.12, APTT 33.5 03/21/22 14:14: Sodium 137, Potassium 4.2, BUN 16, Creatinine 0.68, Glucose 116 H, Total Bilirubin 0.2, AST 12 L, ALT 19, Alkaline Phosphatase 104 Assessment And Plan - Current Problems (Diagnosis) (1) MELAS (mitochondrial encephalopathy, lactic acidosis and stroke-like episodes) Current Visit: Yes Status: Acute Physician Review: Patient Assessed, Agree with Above Assessment and Plan Physician Review Additional Text: Physical Exam General: Confused, Delirious, drowsy++ HEENT: Atraumatic, Normocephalic Neck: Supple, 2+ carotid pulse no bruit, JVD not distended Respiratory: CTA b/l Cardiovascular: Normal pulses, Regular rate/rhythm, Normal S1 S2 Gastrointestinal: Normal bowel sounds, Soft and benign, Non-distended Musculoskeletal: No clubbing, No contractures Integumentary: No rashes, No breakdown Neurological: Normal tone, Abnormal speech, Abnormal cranial nerve function MRI of the brainremote large infarct, no new acute infarct or abnormality COVID screenpositive Impression Acute metabolic encephalopathylikely due to new onset COVID with worsening encephalopathy of MELAS syndrome History of MELAS syndrome Elevated lactic aciddue to Syndrome COVID infection Plan Will switch patient to inpatient status Continue IVF Continue Geodon and Ativan for mood control Will add low-dose Seroquel at night Resume patient carbamazepine Follow formal neurology consult May need SNF or COVID unit since encephalopathy may need a couple of more days to weeks. Familyniece POA discussed with today Subcutaneous Lovenox for DVT prophylaxis Continue close monitoring Time Spent Managing PTS Care (In Minutes): 30
[2022-03-22] MEDS ORDERED: HYDRALAZINE HCL 20 MG/ML VIAL IV PRN (14:48)
[2022-03-22] MEDS: QUETIAPINE 25 MG TAB PO SCH (21:00)
--- NOTE | 2022-03-22 23:42 | CON ---
Reason For Consultation: Consultation called because of altered mental status. History Of Present Illness: Mr. Forde is a 46-year-old patient with history of MELAS, seizures, multiple strokes, who at baseline is fairly independent, able to ambulate short dist ances, and take care of his activities of daily living while living with his niece. He reportedly be came more confused, unable to speak and communicate, and could not bear weight and do his usual activ ities. At [facility], he was found to be unable to communicate in any meaningful way. His head imaging by CT scan revealed large remote left MCA territory infarct and advanced global cerebral atrophy with bilateral basal ganglia mineralization. Brain MRI showed a large remote left MCA infar ct involving the left cerebral hemisphere and remote small right frontotemporal infarct and moderate chronic small vessel ischemic disease with severe advanced cerebral atrophy. There is ex vacuo dilat ation of the left lateral ventricle as a result of the multiple infarctions; however, no acute infarc tion was identified. His white blood cell count initially was normal, then showed to be 11.8 today w ith 80.9% neutrophils, hemoglobin 12.3. INR 1.12. Chemistries unremarkable. Glucose ranged up to 1 41. Calcium slightly low at 8.1. Liver function studies unremarkable. LDL was elevated to 147, HDL low at 39, total cholesterol 208. He does have procalcitonin pending. Lactic acid normal at 2.0. His drug screen was negative. COVID-19 testing is positive. Past Medical History: As noted above, including seizures. Reported the last was 5 years ago. Allergies: PHENYTOIN AND IODINE. Family History: Multiple family members with MELAS and strokes. Social History: No alcohol, tobacco, or IV drug use. Review of Systems: The patient at this point is not responsive to verbal stimulation. Barely responsive to tactile stim ulation in the extremities. Physical Examination: Vital Signs: Blood pressure 158/74, pulse 74, respiratory rate 18, temperature 97.5, oxygen saturati on 100%. Weight 150 pounds, height 5 feet 6 inches, BMI 24.2. General: Mr. Forde is resting in isolation room. He appears to be in no acute distress. He is br eathing spontaneously on his own. Neurological: He is not responding to verbal stimulation. Tactile stimulation may elicit slight mov ement in a focal manner, but much less so on the right versus left side. Tone appears to be normal. Assessment: Mr. Forde is a 46-year-old patient with likely a COVID-aggravated encephalopathy, give n also multiple chronic strokes involving large left middle cerebral artery territory, which likely p roduces significant aphasia and likely be global. Given his multiple comorbid conditions and mitocho ndrial encephalopathy, lactic acidosis, and stroke-like episodes, he does have a significant morbidit y and potential, which may be very difficult to recover from. At this stage, supportive care should be continued, but the family should be prepared that the patient may not do very well in the future, especially with the COVID infection. His chest x-ray did show decreased lung volume with mild basila r opacities, which did represent likely atelectasis. However, a chest CT scan may be helpful in ruli ng out the involvement of the lungs with COVID. An arterial blood gas also may be very helpful. His carbamazepine level, which the patient has been on for a while for seizures and has not had seizures for a long time, was 9.7, which is therapeutic. Plan: 1.Continue with the carbamazepine. 2.EEG should be done. 3.Chest CT done. 4.The patient's family should be told of his serious condition, and may be prepared for him not to be recovering very well. In any event, continue aggressive and suppor tive care at this point. ESTRELLA/DAYNA Voice ID: [id number] Report ID: [id number]
[2022-03-23] MEDS: D5 0.9 NS 1,000 ML IV SCH ×3 (04:00→13:51)
[2022-03-23 05:58] LABS: Absolute Lymphocytes (CBC) 1.6 K/uL (0.7-4.9); Hematocrit 37.8 % (39.6-49.0); MCV 84.4 fL (80-100); MPV 7.8 fL (7.6-11.3); RBC Red Blood Cell Count 4.48 M/uL (4.33-5.43)
[2022-03-23 06:06] LABS: Albumin 3.1 g/dL (3.4-5.0); Bilirubin Total 0.3 mg/dL (0.2-1.0); Potassium 3.6 mmol/L (3.5-5.1); Protein, Total 6.9 g/dL (6.4-8.2)
[2022-03-23] MEDS: carBAMazepine 200 MG TAB PO SCH ×2 (10:27→22:03)
--- NOTE | 2022-03-23 13:10 | P.PN ---
Subjective Date of Service: 03/23/22 Chief Complaint: Altered mental status Subjective: Improving (More conversant today Less agitated overnight) Physical Examination - Vital Signs Temperature: 970.0 F Blood Pressure: 112/68 Pulse: 70 Respirations: 16 Pulse Ox (%): 100 Assessment And Plan - Current Problems (Diagnosis) (1) MELAS (mitochondrial encephalopathy, lactic acidosis and stroke-like episodes) Current Visit: Yes Status: Acute Physician Review: Patient Assessed, Agree with Above Assessment and Plan Physician Review Additional Text: Impression COVID infection Acute metabolic encephalopathydue to COVID induced worsening of MELAS syndrome History of MELAS syndrome Elevated lactic aciddue to Syndrome Plan Clinically improving Continue hydration Continue added Seroquel Continue as needed Ativan if agitation No longer needing wrist restraints, continue to follow MRI negative for acute infarct. Continue COVID isolation Add PT and OT Plan for discharge home when more conversant and returned to baseline mental status Time Spent Managing PTS Care (In Minutes): 35
[2022-03-23] MEDS: dexAMETHasone 4 MG TAB PO SCH (13:52)
[2022-03-23] MEDS: QUETIAPINE 25 MG TAB PO SCH (22:03)
[2022-03-24] MEDS: D5 0.9 NS 1,000 ML IV SCH ×2 (05:00→11:57)
[2022-03-24 06:32] LABS: Absolute Lymphocytes (CBC) 2.4 K/uL (0.7-4.9); Hematocrit 34.5 % (39.6-49.0); Lymphocytes % 30.9 % (15.3-44.8); MCV 84.6 fL (80-100); MPV 7.5 fL (7.6-11.3); RBC Red Blood Cell Count 4.08 M/uL (4.33-5.43)
[2022-03-24 06:55] LABS: Albumin 2.9 g/dL (3.4-5.0); Bilirubin Total 0.3 mg/dL (0.2-1.0); Potassium 3.3 mmol/L (3.5-5.1); Protein, Total 6.8 g/dL (6.4-8.2)
[2022-03-24] MEDS: carBAMazepine 200 MG TAB PO SCH ×2 (09:15→20:48)
[2022-03-24] MEDS: dexAMETHasone 4 MG TAB PO SCH (11:53)
--- NOTE | 2022-03-24 15:03 | P.PN ---
Subjective Date of Service: 03/24/22 Chief Complaint: Altered mental status Subjective: No new changes Physical Examination - Vital Signs Temperature: 98.2 F Blood Pressure: 110/67 Pulse: 67 Respirations: 16 Pulse Ox (%): 97 - Physical Exam General: Alert, Oriented x3 HEENT: Atraumatic, Normocephalic Neck: Supple Respiratory: Normal air movement Cardiovascular: Regular rate/rhythm, Normal S1 S2 Gastrointestinal: Soft and benign Musculoskeletal: No swelling Neurological: Normal speech Assessment And Plan - Plan Impression: COVID infection Acute metabolic encephalopathydue to COVID induced worsening of MELAS syndrome History of MELAS syndrome Elevated lactic aciddue to Syndrome Hypokalemia Plan Clinically improving Continue hydration Continue added Seroquel Continue as needed Ativan if agitation. Potassium is low at 3.3, we will replete and follow closely. We will continue PT and OT Plan for discharge home when more conversant and returned to baseline mental status Physician Review: Patient Assessed, Agree with Above Assessment and Plan
--- NOTE | 2022-03-24 17:37 | EKG ---
Test Date: 2022-03-21 Test Time: 14:20:09 Slot Ambassador: TACHO MEASUREMENT RESULTS: Intervals: Rate: 71 AL: 114 QRSD: 80 QT: 398 QTc: 432 Purdum: P: 46 AL: 114 QRS: 38 T: -7 INTERPRETIVE STATEMENTS: Normal sinus rhythm Possible Left atrial enlargement Nonspecific T wave abnormality Abnormal ECG Compared to ECG 06/03/2018 12:50:32 T-wave abnormality now present Electronically Signed On 03-24-22 17:32:03 CDT by Joe Rowley
[2022-03-24] MEDS: QUETIAPINE 25 MG TAB PO SCH (20:48)
[2022-03-24] MEDS ORDERED: D5 0.9 NS 1,000 ML IV ONE (22:04)
[2022-03-25] MEDS: D5 0.9 NS 1,000 ML IV SCH ×3 (01:00→21:00)
[2022-03-25] MEDS: carBAMazepine 200 MG TAB PO SCH ×2 (08:37→21:20)
[2022-03-25] MEDS: dexAMETHasone 4 MG TAB PO SCH (08:38)
--- NOTE | 2022-03-25 08:56 | P.PN ---
Subjective Date of Service: 03/25/22 Chief Complaint: Altered mental status Subjective: No new changes Physical Examination - Vital Signs Temperature: 97.6 F Blood Pressure: 121/67 Pulse: 73 Respirations: 18 Pulse Ox (%): 97 - Physical Exam General: Alert HEENT: Atraumatic, Normocephalic Neck: Supple Respiratory: Normal air movement Cardiovascular: Regular rate/rhythm, Normal S1 S2 Gastrointestinal: Soft and benign Assessment And Plan - Plan Impression: COVID infection Acute metabolic encephalopathydue to COVID induced worsening of MELAS syndrome History of MELAS syndrome Elevated lactic aciddue to Syndrome Hypokalemia Plan Clinically improving. Continue hydration. Continue added Seroquel. Continue as needed Ativan for episode of agitation. Potassium is low at 3.3on last check. awaiting labs today, we will replete and follow closely. We will continue PT and OT. Plan for discharge home when more conversant and returned to baseline mental status Physician Review: Patient Assessed, Agree with Above Assessment and Plan
[2022-03-25 21:07] LABS: Absolute Lymphocytes (CBC) 2.1 K/uL (0.7-4.9); Hematocrit 34.8 % (39.6-49.0); Lymphocytes % 26.9 % (15.3-44.8); MCV 84.2 fL (80-100); MPV 7.9 fL (7.6-11.3); RBC Red Blood Cell Count 4.13 M/uL (4.33-5.43)
[2022-03-25 21:20] LABS: Albumin 3.1 g/dL (3.4-5.0); Bilirubin Total 0.2 mg/dL (0.2-1.0); Potassium 3.5 mmol/L (3.5-5.1); Protein, Total 6.9 g/dL (6.4-8.2)
[2022-03-25] MEDS: QUETIAPINE 25 MG TAB PO SCH (21:20)
[2022-03-26 06:22] LABS: Albumin 3.1 g/dL (3.4-5.0); Bilirubin Total 0.3 mg/dL (0.2-1.0); Potassium 3.6 mmol/L (3.5-5.1)
[2022-03-26] MEDS: dexAMETHasone 4 MG TAB PO SCH (08:36)
[2022-03-26] MEDS: D5 0.9 NS 1,000 ML IV SCH ×2 (08:36→17:00)
[2022-03-26] MEDS: carBAMazepine 200 MG TAB PO SCH ×2 (08:36→22:11)
[2022-03-26] MEDS: QUETIAPINE 25 MG TAB PO SCH (22:11)
--- NOTE | 2022-03-26 23:33 | P.PN ---
Date of Service: 03/26/22 Subjective Subjective: No new changes; patient back to baseline according to family member. They do want home health arranged at discharge. Will try to get this set up. Anticipate discharge in the morning. Physical Examination - Vital Signs reviewed - Physical Exam General: Alert HEENT: Atraumatic, Normocephalic Neck: Supple Respiratory: Normal air movement Cardiovascular: Regular rate/rhythm, Normal S1 S2 Gastrointestinal: Soft and benign Assessment And Plan - Plan Impression: COVID infection Acute metabolic encephalopathydue to COVID induced worsening of MELAS syndrome History of MELAS syndrome Elevated lactic aciddue to Syndrome Hypokalemia Plan Clinically improving. Continue hydration. Potassium -will replete and follow closely. We will continue PT and OT. Plan for discharge home when more conversant and returned to baseline mental status Physician Review: Patient Assessed, Agree with Above Assessment and Plan
[2022-03-27] MEDS: D5 0.9 NS 1,000 ML IV SCH (02:18)
[2022-03-27 05:45] VITALS: O2SAT 96
--- NOTE | 2022-03-27 07:00 | RAD REPORT ---
EXAM DESCRIPTION: US - UPPER EXTREMITY VENOUS UNILATE - 03/27/2022 1:25 am CLINICAL HISTORY: Left arm pain and swelling COMPARISON: None. TECHNIQUE: Real-time sonographic evaluation of the left upper extremity deep venous systems was perf ormed. FINDINGS: Normal compressibility, flow augmentation, phasic flow and spontaneous flow are identified in the left upper extremity deep venous system. No intraluminal filling defects seen. Internal jugul ar and subclavian veins are normal as well. Superficial basilic vein was unremarkable. The cephalic vein was not clearly identifiable. No finding to suggest thrombosis of the cephalic. IMPRESSION: No DVT in the left upper extremity.
[2022-03-27] MEDS: dexAMETHasone 4 MG TAB PO SCH (09:13)
[2022-03-27] MEDS: carBAMazepine 200 MG TAB PO SCH (09:13)
[2022-03-27 09:30] VITALS: TEMP 97.6
[2022-03-27 12:11] VITALS: BP 116/76
--- NOTE | 2022-03-27 23:44 | P.DS ---
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 Patient who reside with his niece was noted by the niece to be having difficulty with speaking on waking up this morning. Patient was also dropping things and having disorganized movements which is unlike his baseline. Niece reports that patient did have some weight behavior yesterday but he typically gets tired. She has brought him to the ED today because of worsening confusion. She reports at baseline he is able to do all activities of daily living as well as instrumental activities of daily living without any assist. On presentation in the ED patient had normal blood pressure, he was noted to have both expressive and receptive aphasia. Head CT shows remote old left MCA infarct but otherwise no acute intracranial pathology. His WBC and his BMP were normal. He had mild elevated lactic acid of 2.4. At the time of interview patient is unable to give any history. He has some poor words vocalization but unable to follow commands. Niece present at bedside helping with history. No reported new fever or chills. No reported new contact. No new diarrhea chest pain or dizziness Hospital Course: Patient is interacting appropriately. Spoke with patient's daughter who states that he is pretty much back to his baseline. She is okay with him going home at this time. He did have some drooling for which we have added scopolamine. I did ask her to hold off on the Seroquel for the time being dependent on his mentation. Long-term crowder a prognosis is poor. He does have a lot of old strokes but we did not see any new strokes on this admission. Patient overall is doing better and he will be discharged with family. He may need hospice care in the near future if his condition worsens. Vital Signs/Physical Exam: Temp Pulse Resp BP Pulse Ox 97.6 F 66 16 116/76 100 03/27/22 11:00 03/27/22 11:00 03/27/22 11:00 03/27/22 11:00 03/27/22 11:00 General: Alert, In no apparent distress, Oriented x3, Oriented x2 Laboratory Data at Discharge: WBC 7.7 K/uL (4.3-10.9) 06/26/22 20:42 Hgb 11.6 g/dL (13.6-17.9) L 03/25/22 20:42 Hct 34.8 % (39.6-49.0) L 03/25/22 20:42 Plt Count 189 K/uL (152-406) 03/25/22 20:42 PT 12.4 SECONDS (9.5-12.5) 03/21/22 14:14 INR 1.12 03/21/22 14:14 APTT 33.5 SECONDS (24.3-36.9) 03/21/22 14:14 Sodium 139 mmol/L (136-145) 03/26/22 05:48 Potassium 3.6 mmol/L (3.5-5.1) 03/26/22 05:48 BUN 6 mg/dL (7-18) L 03/26/22 05:48 Creatinine 0.56 mg/dL (0.55-1.3) 03/26/22 05:48 Glucose 145 mg/dL (74-106) H 03/26/22 05:48 Total Bilirubin 0.3 mg/dL (0.2-1.0) 03/26/22 05:48 AST 36 U/L (15-37) 03/26/22 05:48 ALT 66 U/L (12-78) 03/26/22 05:48 Alkaline Phosphatase 114 U/L (45-117) 03/26/22 05:48 Triglycerides 110 mg/dL (<150) 03/22/22 05:29 Cholesterol 208 mg/dL (<200) H 03/22/22 05:29 HDL Cholesterol 39 mg/dL (40-60) L 03/22/22 05:29 Cholesterol/HDL Ratio 5.33 03/22/22 05:29 Home Medications: Methylprednisolone [Medrol dosepack] 4 mg PO DIRECTED #1 aly 03/26/22 Quetiapine [Seroquel*] 25 mg PO BEDTIME #30 tab 03/26/22 carBAMazepine [Tegretol*] 400 mg PO BID #120 tab 03/26/22 Aspirin [Aspirin EC 81 MG] 81 mg PO DAILY #30 tablet. 03/27/22 Rosuvastatin [Crestor] 5 mg PO BEDTIME #30 tab 03/27/22 Scopolamine [Transderm-Scop] 1 each TD Q72H #10 patch.td.3 03/27/22 New Medications: Aspirin [Aspirin EC 81 MG] 81 mg PO DAILY #30 tablet. Rosuvastatin [Crestor] 5 mg PO BEDTIME #30 tab Methylprednisolone [Medrol dosepack] 4 mg PO DIRECTED #1 aly Quetiapine [Seroquel*] 25 mg PO BEDTIME #30 tab carBAMazepine [Tegretol*] 400 mg PO BID #120 tab Scopolamine [Transderm-Scop] 1 each TD Q72H #10 patch.td.3 Physician Discharge Instructions: OK TO DC IV AND DC HOME with home health FOLLOW-UP WITH PRIMARY CARE PROVIDER IN 1-2 WEEKS RETURN TO THE ER IF Symptoms worsen CALL DR. MEJIA AT [phone] IF ANY QUESTIONS REGARDING HOSPITAL STAY. PLEASE CALL THE FLOOR AT [phone] IF ANY MEDICATION OR NURSING QUESTIONS. Diet: Regular Activity: Fall precautions Followup: NONE,NONE [Primary Care Provider] - Time spent managing pt's care (in minutes): 35
== END 2022-03-27 11:50 | disposition home health service (06) | DRG 177 ==
LOC: ER 13:40 → ERHOLD 16:43 → 2ND 19:16
PROVIDERS: ADMIT Internal Medicine; ATTEND Internal Medicine
DX: U07.1 COVID-19 (principal); G93.41 Metabolic encephalopathy; E88.41 MELAS syndrome; R47.01 Aphasia; E87.6 Hypokalemia; G40.909 Epilepsy, unspecified, not intractable, without status epilepticus; Z86.73 Personal history of transient ischemic attack (TIA), and cerebral infarction without residual deficits; Z78.1 Physical restraint status
CPT/HCPCS: 36415; 70450; 70551; 71045; 80048; 80053; 80061; 80076; 80156; 80307; 81003; 82550; 82947; 83090; 83605; 84146; 84443; 85025; 85610; 85730; 93005; 93971; 97116; 97161; 97165; 97530; 99285; J0360; J3486; J7030; J7042; J8540; U0003